=== PATIENT | female | born 1955 | race Caucasian/White ===

== ENCOUNTER 2022-03-15 10:22 | Inpatient (IN) | payer MEDICARE, MEDICAID ==
[~2022-03-15] VITALS: Ht 157.5 cm; Wt 74.8 kg
[2022-03-15] MEDS ORDERED: NITROGLYCERIN 0.4MG TABLET SL SL PRN (10:45)
[2022-03-15] MEDS ORDERED: ASPIRIN 81MG TABLET PO ONE (10:45)
[2022-03-15 12:38] LABS: BASOPHILS % 0.6 % (0.0-2.0); EOSINOPHILS % 0.7 % (0.0-5.0); HEMATOCRIT. 36.3 % (36.0-48.0); HEMOGLOBIN. 12.1 g/dL (12.0-16.0); LYMPHOCYTES % 21.6 % (20.0-50.0); MEAN CORPUSCULAR HEMOGLOBIN 27.6 pg (28.0-32.0); MEAN CORPUSCULAR VOLUME 82.4 fL (81.0-99.0); MEAN PLATELET VOLUME 7.9 fl (7.4-10.4); MONOCYTES % 7.7 % (2.0-8.0); NEUTROPHILS % 69.4 % (40.0-76.0); PLATELET 264 x1000/uL (130-400); RED CELL DISTRIBUTION WIDTH 16.8 % (11.6-14.6)
[2022-03-15 12:47] LABS: CHLORIDE 105 mEq/L (98-107)
[2022-03-15] MEDS ORDERED: ENOXAPARIN 100MG/ML SYR SUBCUT ONE (13:30)
[2022-03-15] MEDS ORDERED: ONDANSETRON HCL 4MG/2ML INJ IV PRN (14:30)
[2022-03-15] MEDS ORDERED: IPRATROPIUM/ALBUTEROL 0.5-3(2.5)MG/3ML NEB HHN PRN (14:30)
[2022-03-15] MEDS ORDERED: DIPHENHYDRAMINE 50MG/ML VIAL IV PRN (14:30)
[2022-03-15] MEDS ORDERED: NALOXONE HCL 0.4MG/ML VIAL IV PRN (15:00)
[2022-03-15] MEDS: MORPHINE SULFATE 2 MG/ML CPJ (NOT FOR IM USE) IV PRN (17:41)
[2022-03-15] MEDS: ATENOLOL 50 MG TABLET PO SCH (17:55)
[2022-03-15] MEDS ORDERED: HYDRALAZINE 20MG/ML VIAL IV PRN (19:15)
[2022-03-16] MEDS: MORPHINE SULFATE 2 MG/ML CPJ (NOT FOR IM USE) IV PRN ×2 (01:54→21:16)
[2022-03-16] MEDS: CLONIDINE 0.1MG TABLET PO PRN ×2 (02:04→12:05)
[2022-03-16] MEDS: ATENOLOL 50 MG TABLET PO SCH (09:00)
[2022-03-16 09:12] LABS: BASOPHILS % 0.7 % (0.0-2.0); EOSINOPHILS % 2.5 % (0.0-5.0); HEMATOCRIT. 35.6 % (36.0-48.0); HEMOGLOBIN. 11.7 g/dL (12.0-16.0); LYMPHOCYTES % 40.2 % (20.0-50.0); MEAN CORPUSCULAR HEMOGLOBIN 27.1 pg (28.0-32.0); MEAN CORPUSCULAR VOLUME 82.5 fL (81.0-99.0); MONOCYTES % 8.7 % (2.0-8.0); NEUTROPHILS % 47.9 % (40.0-76.0); PLATELET 244 x1000/uL (130-400); RED BLOOD CELL COUNT 4.31 mill/uL (4.2-5.4)
[2022-03-16 09:20] LABS: CHLORIDE 105 mEq/L (98-107)
[2022-03-16 09:30] LABS: HDL CHOLESTEROL 37 mg/dL (40-59); LDL CHOLESTEROL 102 mg/dL (5-100)
[2022-03-16] MEDS: ENOXAPARIN 40MG/0.4ML SYR SUBCUT SCH (09:46)
[2022-03-16] MEDS: NITROGLYCERIN OINT 1GM/INCH UDPKT TD SCH ×3 (09:46→21:10)
[2022-03-16] MEDS: ASPIRIN 81MG EC TABLET PO SCH (09:46)
[2022-03-16 11:30] VITALS: BP 178/79
[2022-03-16 12:00] VITALS: BP 178/79
[2022-03-16] MEDS ORDERED: POTASSIUM CHLORIDE 20MEQ TABLET SR PO NR (12:15)
[2022-03-16] MEDS ORDERED: ASPI-1406 PO (12:40)
[2022-03-16] MEDS ORDERED: ATEN100T PO (12:40)
[2022-03-16] MEDS: ACETAMINOPHEN 325MG TABLET PO PRN (12:41)
[2022-03-16] MEDS ORDERED: INFLUENZA VACCINE 05/PF 0.5 ML SYRINGE IM ONE (14:00)
[2022-03-16] MEDS ORDERED: PNEUMOCOCCAL 23-VAL P-SAC VAC 0.5 ML IM ONE (14:00)
[2022-03-16 16:00] VITALS: BP 130/79
[2022-03-16 20:00] VITALS: BP 161/83
[2022-03-16] MEDS: ATORVASTATIN CALCIUM 10MG TABLET PO SCH (21:13)
[2022-03-17] VITALS: BP 155/86
[2022-03-17 04:00] VITALS: BP 164/94
[2022-03-17] MEDS: CLONIDINE 0.1MG TABLET PO PRN ×2 (04:04→21:05)
[2022-03-17] MEDS: NITROGLYCERIN OINT 1GM/INCH UDPKT TD SCH (05:21)
[2022-03-17 06:32] LABS: BASOPHILS % 0.6 % (0.0-2.0); EOSINOPHILS % 2.3 % (0.0-5.0); HEMOGLOBIN. 11.4 g/dL (12.0-16.0); LYMPHOCYTES % 37.4 % (20.0-50.0); MEAN CORPUSCULAR HEMOGLOBIN 27.5 pg (28.0-32.0); MEAN CORPUSCULAR VOLUME 81.6 fL (81.0-99.0); MEAN PLATELET VOLUME 8.5 fl (7.4-10.4); MONOCYTES % 8.3 % (2.0-8.0); NEUTROPHILS % 51.4 % (40.0-76.0); PLATELET 237 x1000/uL (130-400); RED BLOOD CELL COUNT 4.16 mill/uL (4.2-5.4); RED CELL DISTRIBUTION WIDTH 16.7 % (11.6-14.6)
[2022-03-17 06:36] LABS: CHLORIDE 108 mEq/L (98-107)
[2022-03-17 08:00] VITALS: BP 110/64
[2022-03-17] MEDS: ASPIRIN 81MG EC TABLET PO SCH (09:10)
[2022-03-17] MEDS: ATENOLOL 50 MG TABLET PO SCH (09:11)
[2022-03-17] MEDS: ENOXAPARIN 40MG/0.4ML SYR SUBCUT SCH (09:12)
[2022-03-17] MEDS: ACETAMINOPHEN 325MG TABLET PO PRN (09:17)
[2022-03-17 12:01] VITALS: BP 103/53
[2022-03-17 16:00] VITALS: BP 145/87
[2022-03-17 20:00] VITALS: BP 174/96
[2022-03-17] MEDS: ATORVASTATIN CALCIUM 10MG TABLET PO SCH (21:05)
[2022-03-18] VITALS: BP 151/79
[2022-03-18 04:00] VITALS: BP 159/92
[2022-03-18 06:37] LABS: D-DIMER 0.41 mg/L FEU (<0.50); PARTIAL THROMBOPLASTIN TIME 27.6 sec (23.4-31.0); PROTHROMBIN TIME 11.2 sec (9.6-11.0)
[2022-03-18 08:00] VITALS: BP 157/79
[2022-03-18] MEDS ORDERED: NITROGLYCERIN SPRAY/4.9GM CAN TL NR (09:00)
[2022-03-18] MEDS ORDERED: IOHEXOL-350 100 ML BOTTLE ONE (10:46)
[2022-03-18 12:00] VITALS: BP 164/82
[2022-03-18] MEDS: ASPIRIN 81MG EC TABLET PO SCH (12:07)
[2022-03-18] MEDS: ENOXAPARIN 40MG/0.4ML SYR SUBCUT SCH (12:08)
[2022-03-18] MEDS: ATENOLOL 50 MG TABLET PO SCH (12:08)
[2022-03-18] MEDS: CLONIDINE 0.1MG TABLET PO PRN (13:28)
[2022-03-18] MEDS ORDERED: ATEN50TA PO (14:58)
[2022-03-18] MEDS ORDERED: ATOR10TA PO (14:58)
[2022-03-18 15:22] VITALS: BP 157/76
== END 2022-03-18 16:20 | disposition home health service (06) | DRG 303 ==
LOC: ER 10:26 → 8WST 13:19 → EDBEDREQ 13:25 → EDBEDREQTM 13:25 → ENRESERV 03-16 10:55
PROVIDERS: ADMIT Internal Medicine; ATTEND Internal Medicine
DX: I25.10 Atherosclerotic heart disease of native coronary artery without angina pectoris (principal); I16.9 Hypertensive crisis, unspecified; M71.22 Synovial cyst of popliteal space [Baker], left knee; M71.21 Synovial cyst of popliteal space [Baker], right knee; E78.5 Hyperlipidemia, unspecified; F41.9 Anxiety disorder, unspecified; I49.3 Ventricular premature depolarization; I10 Essential (primary) hypertension; I25.2 Old myocardial infarction; Z79.82 Long term (current) use of aspirin
CPT/HCPCS: 36415; 70551; 71045; 75571; 80048; 80053; 80061; 83880; 84484; 85025; 85379; 87426; 90686; 93005; 93306; 93880; 93970; 97162; 99291; J0360; J1650; J2270; Q9967